=== PATIENT | female | born 1985 | race Hispanic/Latino ===

== ENCOUNTER 2020-05-24 22:20 | Inpatient (IN) | payer MEDICARE, MEDICAID ==
[2020-05-24] MEDS ORDERED: Calcium Carbonate 500 MG ChewTAB PO PRN (22:35)
[2020-05-24] MEDS ORDERED: Acetaminophen 325 MG TAB PO PRN (22:35)
[2020-05-24] MEDS ORDERED: Senokot S 8.6-50 MG TAB PO PRN (22:35)
[2020-05-24] MEDS ORDERED: Guaifenesin DM 100-10/5 ML UDCUP PO PRN (22:35)
[2020-05-24] MEDS ORDERED: Vancomycin 1 GM in Premix Bag 1 BAG IVPB SCH (22:45)
[2020-05-24] MEDS ORDERED: Doxycycline 100 MG in Syringe 0 ML IVPB SCH (22:45)
[2020-05-24 22:48] VITALS: BMI 40.5
[2020-05-24] MEDS ORDERED: Carvedilol 12.5 MG TAB PO SCH (23:00)
[2020-05-24] MEDS ORDERED: Dextrose 50% Abboject 50 ML SYRINGE SLOW IVP PRN (23:03)
[2020-05-24] MEDS ORDERED: HumaLOG 300 UNITS/3 ML VIAL SC PRN (23:03)
[2020-05-24] MEDS ORDERED: Dextrose 5% in Water 1,000 ML IV PRN (23:03)
[2020-05-24] MEDS ORDERED: VANCOMYCIN 1.25 GM/250 ML BAG 1.25 GM in Premix Bag 1 BAG IVPB SCH (23:15)
[2020-05-24] MEDS ORDERED: Vancomycin HCl 750 MG in Sodium Chloride 0.9% 250 ML 250 ML IVPB SCH (23:15)
[2020-05-24] MEDS ORDERED: HOLD VANCOMYCIN FOR LEVEL >20 FS SCH (23:15)
[2020-05-24] MEDS ORDERED: Vancomycin HCl 1 GM in Sodium Chloride 0.9% 250 ML 250 ML IVPB SCH ×2 (23:15→23:59)
[2020-05-24] MEDS ORDERED: Vancomycin 1.5 GRAM/300 ML BAG 1.5 GM in Premix Bag 1 BAG IVPB SCH (23:15)
[2020-05-24] MEDS: Metoclopramide HCl 10 MG/2 ML VIAL IVP SCH (23:18)
[2020-05-24] MEDS: Famotidine/PF 20 mg/2ml Vial SLOW IVP SCH (23:19)
[2020-05-25] MEDS: Promethazine HCl 12.5 MG in Sodium Chloride 0.9% 50 ML IVPB PRN ×2 (00:38→07:52)
[2020-05-25] MEDS ORDERED: Piperacillin/Tazobactam 3.375 GM in Sodium Chloride 0.9% 100 ML IVPB SCH (01:00)
[2020-05-25] MEDS: Piperacillin/Tazobactam 3.375 GM in Sodium Chloride 0.9% 100 ML IVPB SCH ×2 (02:43→16:31)
[2020-05-25] MEDS: Morphine 2 MG/ML VIAL SLOW IVP PRN ×2 (02:48→08:33)
[2020-05-25] MEDS: Metoclopramide HCl 10 MG/2 ML VIAL IVP SCH ×4 (05:15→21:18)
[2020-05-25] MEDS ORDERED: Piperacillin/Tazobactam 2.25 GM in Sodium Chloride 0.9% 100 ML IVPB SCH (06:00)
[2020-05-25 06:46] LABS: #Monocytes 0.3 10x3/uL (0.0-1.1); #Neutrophils 2.4 10x3/uL (1.5-8.4); %Basophils 0.3 % (0.0-2.0); %Lymphocytes 24.1 % (18.0-47.0); %Monocytes 7.1 % (0.0-10.0); %Neutrophils 67.7 % (40.0-75.0); Hemoglobin 12.6 g/dL (12.0-15.5); Mean Corpuscular HGB CONC 31.2 g/dL (32.0-36.0); Mean Corpuscular Hemoglobin 27.6 pg (27.0-33.0); Mean Corpuscular Volume 88.4 fl (81.6-98.3); Mean Platelet Volume 10.5 fl (7.4-10.4); Platelet Count 166 10x3/uL (150-450); RBC Distribution Width 16.1 % (11.5-14.5); Red Blood Cell (RBC) Count 4.57 10x6/uL (3.90-5.03); White Blood Cell (WBC) Count 3.5 10x3/uL (3.5-10.5)
[2020-05-25 07:03] LABS: ALT (SGPT) Less than 6 U/L (8-55); AST (SGOT) 11 U/L (5-34); Albumin 3.4 g/dL (3.5-5.0); Alkaline Phosphatase 64 U/L (40-110); Anion Gap 21 mmol/L (10-20); BUN (Urea Nitrogen) 33 mg/dL (7.0-18.7); Bilirubin, Total 0.6 mg/dL (0.2-1.2); Calc. Creatinine Clearance 14 mL/min (70-130); Calcium 7.8 mg/dL (7.8-10.44); Carbon Dioxide 23 mmol/L (22-29); Chloride 100 mmol/L (98-107); Globulin 3.4 g/dL (2.4-3.5); Glucose 97 mg/dL (70-105); Potassium 4.4 mmol/L (3.5-5.1); Protein, Total 6.8 g/dL (6.0-8.3); Sodium 140 mmol/L (136-145)
[2020-05-25] MEDS: predniSONE 5 MG TAB PO SCH (08:39)
[2020-05-25] MEDS: NIFEdipine XL 60 MG TAB PO SCH (08:39)
[2020-05-25] MEDS: Carvedilol 25 MG TAB PO SCH ×2 (08:39→18:11)
[2020-05-25] MEDS: Amitriptyline HCl 25 MG TAB PO SCH (08:40)
[2020-05-25] MEDS: Heparin 5,000 UNITS/ML VIAL SC SCH ×3 (08:44→21:22)
[2020-05-25] MEDS: Alogliptin 25 MG TAB PO SCH (08:49)
[2020-05-25] MEDS ORDERED: Tacrolimus 1 MG CAP PO SCH (09:00)
[2020-05-25] MEDS: Tacrolimus 0.5 MG CAP PO SCH ×2 (11:08→21:22)
[2020-05-25] MEDS: Mycophenolate 250 MG CAP PO SCH ×2 (11:08→21:32)
[2020-05-25] MEDS: Aspirin 81 mg Enteric Coated Tablet PO SCH (11:08)
[2020-05-25] MEDS ORDERED: Heparin 10,000 UNITS/ 10 ML VIAL SLOW IVP PRN (12:37)
[2020-05-25] MEDS ORDERED: Heparin 10,000 UNITS/ 10 ML VIAL CATH PRN (12:39)
[2020-05-25 14:36] LABS: SARS-CoV-2 PCR by NAA Not Detected (NotDetected)
[2020-05-25] MEDS: HYDROcodone/Acetaminophen 5/325 mg Tablet PO PRN (16:39)
[2020-05-25] MEDS: Scopolamine 1.5 mg/72 hour Patch TD SCH (18:50)
[2020-05-25] MEDS: Famotidine/PF 20 mg/2ml Vial SLOW IVP SCH (21:17)
[2020-05-25] MEDS: Zolpidem Tartrate 5 MG TAB PO PRN (22:55)
[2020-05-26] MEDS: Piperacillin/Tazobactam 3.375 GM in Sodium Chloride 0.9% 100 ML IVPB SCH ×2 (02:25→13:51)
[2020-05-26] MEDS: Metoclopramide HCl 10 MG/2 ML VIAL IVP SCH ×4 (05:34→22:12)
[2020-05-26 06:42] LABS: Vancomycin, Random 21.4 ug/mL (See Comment)
[2020-05-26] MEDS: Amitriptyline HCl 25 MG TAB PO SCH (09:14)
[2020-05-26] MEDS: predniSONE 5 MG TAB PO SCH (09:14)
[2020-05-26] MEDS: Carvedilol 25 MG TAB PO SCH ×2 (09:14→18:13)
[2020-05-26] MEDS: Aspirin 81 mg Enteric Coated Tablet PO SCH (09:15)
[2020-05-26] MEDS: Heparin 5,000 UNITS/ML VIAL SC SCH ×3 (09:15→20:15)
[2020-05-26] MEDS: Mycophenolate 250 MG CAP PO SCH ×2 (09:15→22:11)
[2020-05-26] MEDS: Alogliptin 25 MG TAB PO SCH (09:24)
[2020-05-26] MEDS: NIFEdipine XL 60 MG TAB PO SCH (09:25)
[2020-05-26] MEDS: Morphine 2 MG/ML VIAL SLOW IVP PRN ×3 (11:42→22:32)
[2020-05-26] MEDS: Tacrolimus 0.5 MG CAP PO SCH ×2 (13:45→20:14)
[2020-05-26] MEDS: HYDROcodone/Acetaminophen 5/325 mg Tablet PO PRN (15:16)
[2020-05-26] MEDS: Promethazine HCl 12.5 MG in Sodium Chloride 0.9% 50 ML IVPB PRN (20:12)
[2020-05-26] MEDS: Zolpidem Tartrate 5 MG TAB PO PRN (20:14)
[2020-05-26] MEDS: Lorazepam 2 MG/ML VIAL SLOW IVP PRN (20:37)
[2020-05-26] MEDS: Famotidine/PF 20 mg/2ml Vial SLOW IVP SCH (22:11)
[2020-05-27] MEDS: Piperacillin/Tazobactam 3.375 GM in Sodium Chloride 0.9% 100 ML IVPB SCH ×2 (00:14→14:00)
[2020-05-27] MEDS: Mycophenolate 250 MG CAP PO SCH ×4 (03:29→23:13)
[2020-05-27] MEDS: Tacrolimus 0.5 MG CAP PO SCH ×4 (03:31→23:14)
[2020-05-27] MEDS: Metoclopramide HCl 10 MG/2 ML VIAL IVP SCH ×4 (05:05→23:04)
[2020-05-27] MEDS: Heparin 5,000 UNITS/ML VIAL SC SCH ×3 (09:00→20:21)
[2020-05-27] MEDS: Carvedilol 25 MG TAB PO SCH ×2 (09:49→17:00)
[2020-05-27] MEDS: Alogliptin 25 MG TAB PO SCH (09:50)
[2020-05-27] MEDS: predniSONE 5 MG TAB PO SCH (09:50)
[2020-05-27] MEDS: Amitriptyline HCl 25 MG TAB PO SCH (09:50)
[2020-05-27] MEDS: Aspirin 81 mg Enteric Coated Tablet PO SCH (09:50)
[2020-05-27] MEDS: NIFEdipine XL 60 MG TAB PO SCH (09:51)
[2020-05-27] MEDS ORDERED: Lidocaine 1% (PF) 30 ML VIAL IJ SCH (17:30)
[2020-05-27] MEDS ORDERED: hydrALAZINE 20 MG/ML VIAL SLOW IVP PRN (19:50)
[2020-05-27] MEDS: Promethazine HCl 12.5 MG in Sodium Chloride 0.9% 50 ML IVPB PRN (19:54)
[2020-05-27] MEDS: Morphine 2 MG/ML VIAL SLOW IVP PRN (19:54)
[2020-05-27] MEDS: Lorazepam 2 MG/ML VIAL SLOW IVP PRN (20:20)
[2020-05-27] MEDS: Famotidine/PF 20 mg/2ml Vial SLOW IVP SCH (23:03)
[2020-05-28] MEDS: Piperacillin/Tazobactam 3.375 GM in Sodium Chloride 0.9% 100 ML IVPB SCH ×2 (01:12→17:29)
[2020-05-28] MEDS: Morphine 2 MG/ML VIAL SLOW IVP PRN ×4 (01:13→20:45)
[2020-05-28] MEDS: HYDROcodone/Acetaminophen 5/325 mg Tablet PO PRN ×2 (03:07→11:03)
[2020-05-28] MEDS: Metoclopramide HCl 10 MG/2 ML VIAL IVP SCH ×4 (05:27→23:02)
[2020-05-28] MEDS: Promethazine HCl 12.5 MG in Sodium Chloride 0.9% 50 ML IVPB PRN ×2 (05:30→16:55)
[2020-05-28 07:11] LABS: #Monocytes 0.6 10x3/uL (0.0-1.1); #Neutrophils 1.9 10x3/uL (1.5-8.4); %Eosinophils 0.2 % (0.0-6.0); %Lymphocytes 50.3 % (18.0-47.0); %Neutrophils 36.7 % (40.0-75.0); Hemoglobin 8.8 g/dL (12.0-15.5); Mean Corpuscular HGB CONC 30.3 g/dL (32.0-36.0); Mean Corpuscular Hemoglobin 27.3 pg (27.0-33.0); Mean Corpuscular Volume 90.1 fl (81.6-98.3); Mean Platelet Volume 9.6 fl (7.4-10.4); Platelet Count 374 10x3/uL (150-450); RBC Distribution Width 14.9 % (11.5-14.5); Red Blood Cell (RBC) Count 3.22 10x6/uL (3.90-5.03); White Blood Cell (WBC) Count 5.3 10x3/uL (3.5-10.5)
[2020-05-28 07:30] LABS: Anion Gap 16 mmol/L (10-20); BUN (Urea Nitrogen) 23 mg/dL (7.0-18.7); CRP (Inflammatory) 5.46 mg/dL (= or < 0.5); Calc. Creatinine Clearance 24 mL/min (70-130); Calcium 7.7 mg/dL (7.8-10.44); Carbon Dioxide 26 mmol/L (22-29); Chloride 99 mmol/L (98-107); Glucose 82 mg/dL (70-105); Potassium 3.4 mmol/L (3.5-5.1); Sodium 138 mmol/L (136-145)
[2020-05-28] MEDS ORDERED: Vancomycin HCl 1 GM in Sodium Chloride 0.9% 250 ML 250 ML IVPB SCH (08:15)
[2020-05-28] MEDS: Mycophenolate 250 MG CAP PO SCH ×2 (09:00→20:51)
[2020-05-28] MEDS: Alogliptin 25 MG TAB PO SCH (09:00)
[2020-05-28] MEDS: Tacrolimus 0.5 MG CAP PO SCH ×2 (09:00→20:51)
[2020-05-28] MEDS: Heparin 5,000 UNITS/ML VIAL SC SCH ×3 (09:00→20:46)
[2020-05-28] MEDS ORDERED: EPOETIN ALFA-EPBX (ESRD) 10,000 UNIT/ML VIAL SC SCH (12:00)
[2020-05-28] MEDS: Aspirin 81 mg Enteric Coated Tablet PO SCH (14:01)
[2020-05-28] MEDS: Carvedilol 25 MG TAB PO SCH ×2 (14:01→17:44)
[2020-05-28] MEDS: Amitriptyline HCl 25 MG TAB PO SCH (14:02)
[2020-05-28] MEDS: NIFEdipine XL 60 MG TAB PO SCH (15:30)
[2020-05-28] MEDS: predniSONE 5 MG TAB PO SCH (15:31)
[2020-05-28] MEDS: Lactinex Tablet PO SCH (20:45)
[2020-05-28] MEDS: Scopolamine 1.5 mg/72 hour Patch TD SCH (20:51)
[2020-05-28] MEDS: Famotidine/PF 20 mg/2ml Vial SLOW IVP SCH (23:01)
[2020-05-29] MEDS: Lorazepam 2 MG/ML VIAL SLOW IVP PRN ×2 (00:43→21:07)
[2020-05-29] MEDS: Zolpidem Tartrate 5 MG TAB PO PRN ×2 (01:01→21:14)
[2020-05-29] MEDS: Morphine 2 MG/ML VIAL SLOW IVP PRN ×3 (01:37→10:23)
[2020-05-29] MEDS: Piperacillin/Tazobactam 3.375 GM in Sodium Chloride 0.9% 100 ML IVPB SCH (01:38)
[2020-05-29] MEDS: Metoclopramide HCl 10 MG/2 ML VIAL IVP SCH (04:19)
[2020-05-29] MEDS: Promethazine HCl 12.5 MG in Sodium Chloride 0.9% 50 ML IVPB PRN (06:06)
[2020-05-29] MEDS: Lactinex Tablet PO SCH ×3 (09:43→21:03)
[2020-05-29] MEDS: Alogliptin 25 MG TAB PO SCH (09:43)
[2020-05-29] MEDS: predniSONE 5 MG TAB PO SCH (09:43)
[2020-05-29] MEDS: Carvedilol 25 MG TAB PO SCH ×2 (09:43→17:09)
[2020-05-29] MEDS: Mycophenolate 250 MG CAP PO SCH ×2 (09:44→21:04)
[2020-05-29] MEDS: Heparin 5,000 UNITS/ML VIAL SC SCH ×3 (09:45→21:03)
[2020-05-29] MEDS ORDERED: Loperamide HCl 2 MG CAP PO SCH (10:15)
[2020-05-29] MEDS ORDERED: Potassium Chloride 20 MEQ TAB PO SCH (10:15)
[2020-05-29] MEDS: Aspirin 81 mg Enteric Coated Tablet PO SCH (10:24)
[2020-05-29] MEDS: NIFEdipine XL 60 MG TAB PO SCH (10:24)
[2020-05-29] MEDS: Tacrolimus 0.5 MG CAP PO SCH ×2 (10:24→21:04)
[2020-05-29] MEDS: Amitriptyline HCl 25 MG TAB PO SCH (10:32)
[2020-05-29 11:46] LABS: Tacrolimus <1.0 ng/mL (2.0-20.0)
[2020-05-29] MEDS: Metoclopramide HCl 10 MG TAB PO SCH ×3 (12:03→22:23)
[2020-05-29] MEDS: HYDROcodone/Acetaminophen 5/325 mg Tablet PO PRN ×3 (13:13→21:14)
[2020-05-29] MEDS ORDERED: Amoxicillin/Potassium Clav 500 MG TAB PO SCH (15:00)
[2020-05-29] MEDS ORDERED: Loperamide HCl 2 MG CAP PO PRN (18:58)
[2020-05-29] MEDS: Famotidine/PF 20 mg/2ml Vial SLOW IVP SCH (22:26)
[2020-05-30] MEDS: HYDROcodone/Acetaminophen 5/325 mg Tablet PO PRN ×2 (05:40→11:09)
[2020-05-30 06:46] LABS: #Monocytes 0.7 10x3/uL (0.0-1.1); %Basophils 0.2 % (0.0-2.0); %Eosinophils 0.3 % (0.0-6.0); %Lymphocytes 54.8 % (18.0-47.0); %Monocytes 10.9 % (0.0-10.0); %Neutrophils 32.8 % (40.0-75.0); Hemoglobin 8.2 g/dL (12.0-15.5); Mean Corpuscular HGB CONC 31.1 g/dL (32.0-36.0); Mean Corpuscular Volume 90.1 fl (81.6-98.3); Mean Platelet Volume 10.3 fl (7.4-10.4); Platelet Count 373 10x3/uL (150-450); RBC Distribution Width 15.6 % (11.5-14.5); Red Blood Cell (RBC) Count 2.93 10x6/uL (3.90-5.03); White Blood Cell (WBC) Count 6.2 10x3/uL (3.5-10.5)
[2020-05-30 06:50] LABS: Anion Gap 17 mmol/L (10-20); BUN (Urea Nitrogen) 24 mg/dL (7.0-18.7); CRP (Inflammatory) 2.88 mg/dL (= or < 0.5); Calc. Creatinine Clearance 21 mL/min (70-130); Calcium 7.9 mg/dL (7.8-10.44); Carbon Dioxide 23 mmol/L (22-29); Chloride 100 mmol/L (98-107); Glucose 143 mg/dL (70-105); Sodium 136 mmol/L (136-145)
[2020-05-30] MEDS: Lactinex Tablet PO SCH (08:55)
[2020-05-30] MEDS: Alogliptin 25 MG TAB PO SCH (08:55)
[2020-05-30] MEDS: Carvedilol 25 MG TAB PO SCH (08:56)
[2020-05-30] MEDS: Tacrolimus 0.5 MG CAP PO SCH (08:56)
[2020-05-30] MEDS: predniSONE 5 MG TAB PO SCH (08:56)
[2020-05-30] MEDS: Mycophenolate 250 MG CAP PO SCH (08:56)
[2020-05-30] MEDS: Amitriptyline HCl 25 MG TAB PO SCH (08:57)
[2020-05-30] MEDS: Aspirin 81 mg Enteric Coated Tablet PO SCH (08:57)
[2020-05-30] MEDS: Metoclopramide HCl 10 MG TAB PO SCH ×2 (08:57→11:10)
[2020-05-30] MEDS: Heparin 5,000 UNITS/ML VIAL SC SCH (08:57)
[2020-05-30] MEDS: NIFEdipine XL 60 MG TAB PO SCH (09:11)
[2020-05-30 11:36] VITALS: BP 108/67; TEMP 97.8
== END 2020-05-30 13:45 | disposition home or self-care (01) | DRG 73 ==
LOC: CSHTELE 22:20
PROVIDERS: ADMIT Student in an Organized Health Care Education/Training Program; ATTEND Family Medicine
PROC: 5A1D70Z Performance of Urinary Filtration, Intermittent, Less than 6 Hours Per Day (ICD-10-PCS; principal; 2020-05-25)
DX: E10.43 Type 1 diabetes mellitus with diabetic autonomic (poly)neuropathy (principal); J69.0 Pneumonitis due to inhalation of food and vomit; J96.01 Acute respiratory failure with hypoxia; N18.6 End stage renal disease; Z94.83 Pancreas transplant status; I12.0 Hypertensive chronic kidney disease with stage 5 chronic kidney disease or end stage renal disease; Z20.822 Contact with and (suspected) exposure to COVID-19; K31.84 Gastroparesis; E66.01 Morbid (severe) obesity due to excess calories; D63.1 Anemia in chronic kidney disease; E10.22 Type 1 diabetes mellitus with diabetic chronic kidney disease; R19.7 Diarrhea, unspecified; G43.909 Migraine, unspecified, not intractable, without status migrainosus; I16.0 Hypertensive urgency; Z79.899 Other long term (current) drug therapy; Z68.38 Body mass index [BMI] 38.0-38.9, adult; Z99.2 Dependence on renal dialysis; Z79.82 Long term (current) use of aspirin; Z79.891 Long term (current) use of opiate analgesic
CPT/HCPCS: 36415; 36416; 71045; 80048; 80053; 80197; 80202; 84145; 85025; 86140; 87324; 87449; 87635; 90935; 94760; G0257; J0360; J1644; J2060; J2270; J2543; J2550; J2765; J3370; J3490; J7050; J7507; J7512; J7517; S0028; U0003; U0005

== ENCOUNTER 2022-06-04 00:14 | Emergency (ER) | payer MEDICARE, MEDICAID ==
[2022-06-04 01:12] LABS: Anion Gap 25 mmol/L (10-20); BUN (Urea Nitrogen) 72 mg/dL (7.0-18.7); Calc. Creatinine Clearance 0 mL/min (70-130); Calcium 8.9 mg/dL (7.8-10.44); Carbon Dioxide 23 mmol/L (22-29); Chloride 92 mmol/L (98-107); Estimated GFR 6; Glucose 150 mg/dL (70-105); Potassium 5.9 mmol/L (3.5-5.1); Sodium 134 mmol/L (136-145)
[2022-06-04] MEDS ORDERED: Heparin 10,000 UNITS/ 10 ML VIAL FS SCH (02:15)
[2022-06-04 02:37] LABS: HBSAg Index 0.14 S/CO (0-0.99); Hep B Surf Ag Non-Reactive S/CO (NonReactive)
[2022-06-04 07:02] LABS: Actual Bicarbonate (HCO3v) 25 mEq/L (22-28); Calcium, Ionized (venous) 1.13 mmol/L (1.16-1.32); Chloride (VBG) 90 mmol/L (98-106); Hemoglobin (Hb) 15.3 g/dL (11.7-15.5); Potassium (VBG) 5.88 mmol/L (3.70-5.30); Puncture Site Other Site; RapidComm Collect By CBN; Sodium 143.4 mmol/L (133-146); pH (venous) 7.49 (7.32-7.43)
[2022-06-04 07:29] LABS: Albumin 3.9 g/dL (3.5-5.0); Anion Gap 21 mmol/L (10-20); BUN (Urea Nitrogen) 30 mg/dL (7.0-18.7); BUN/Creatinine Ratio 6.79; Calc. Creatinine Clearance 0 mL/min (70-130); Calcium 9.2 mg/dL (7.8-10.44); Carbon Dioxide 22 mmol/L (22-29); Chloride 98 mmol/L (98-107); Estimated GFR 13; Glucose 143 mg/dL (70-105); Phosphorus 4.6 mg/dL (2.3-4.7); Potassium 5.1 mmol/L (3.5-5.1); Sodium 136 mmol/L (136-145)
[2022-06-04 13:27] LABS: Hep B Core Total Ab Non-Reactive (NonReactive); Hep B Core Total Index 0.12 S/CO (0-0.79)
[2022-06-04 14:23] LABS: HBSAB Concentration 11.67 mIU/mL
[2022-06-04 14:30] LABS: Hep B Surf AB Indeterminate (NonReactive)
[2022-06-05 12:00] LABS: Hep C IgG Ab Non-Reactive (NonReactive)
[2022-06-05 12:04] LABS: Hep C Index 0.15 S/CO (0-0.79)
== END 2022-06-04 09:05 | disposition home or self-care (01) ==
LOC: CSHERS 00:14
DX: E87.5 Hyperkalemia (principal); I12.0 Hypertensive chronic kidney disease with stage 5 chronic kidney disease or end stage renal disease; N18.6 End stage renal disease; E11.22 Type 2 diabetes mellitus with diabetic chronic kidney disease; G43.909 Migraine, unspecified, not intractable, without status migrainosus
CPT/HCPCS: 36415; 36416; 80048; 82805; 86704; 90935; 99285; G0257; J1644